=== PATIENT | male | born 1985 | race Caucasian/White ===

== ENCOUNTER 2018-08-31 21:02 | Emergency (ER) | payer BC, MEDICAID ==
[2018-08-31 21:10] VITALS: BP 123/80
[2018-08-31] MEDS ORDERED: SILVER NITRATE APPLICATOR 1 APPL TP ONE (21:58)
[2018-08-31] MEDS ORDERED: AMOXICILLIN/CLAVULANATE POT 875/125 MG TAB PO ONE (22:02)
--- NOTE | 2018-08-31 22:07 | EDPHY ---
H & P Stated Complaint: dog bite right ear 30 min ago Time Seen by Provider: 08/31/18 22:03 HPI/ROS: HPI: This is a 33-year-old male who presents with Chief Complaint: Dog bite to right ear Location: Right ear Quality: Dog bite Duration: Prior to arrival Signs and Symptoms: + bleeding, no radiation, no numbness, no weakness, no tingling, no incontinence, no decreased range of motion, no swelling, + pain, no fever Timing: Acute Severity: Moderate Context: Reports that he was at his parents house sitting in a [place] playing guitar and seeing when he moved the family dog who is a 50 lb setter mix, up-to- date on vaccinations including rabies, and the dog turned around and bit him in the right ear. Patient reports that it immediately started to bleed. Denies LOC/head injury/neck pain/dizziness/nausea/vomiting/amnesia. Reports tetanus is current. Modifying Factors: Direct pressure Comment: ROS: A comprehensive 10 system review of systems is otherwise negative aside from elements mentioned in the history of present illness. MEDICAL/SURGICAL/SOCIAL HISTORY: Medical history: hiv +: undetectable, chi, tonsils, hep c + 05/2017: undetectable now, mrsa: 2011: right groin Surgical history: left knee surgery Social history: Never smoked. CONSTITUTIONAL: Well-developed, well-nourished, slightly anxious adult white male, awake and alert, no obvious distress HEENT: normocephalic, PERRL, EOMI. no globe entrapment, no raccoon eyes. no Sutton signs.Tympanic membranes clear. External pinna shows 2 areas of injury; near the tragus is a small skin avulsion measuring 2 mm x 1 mm with active bleeding, there is a v-shaped laceration in the upper portion of the pinna near the cartilage not through and through measure approximately 2 mm x 2 mm-scant active bleeding. No tympanic membrane rupture. Nares patent; no septal hematoma. Oropharynx clear, no exudate and moist pink mucosa. No malocclusion. no dental trauma. Airway patent. No lymphadenopathy. NECK: supple, no midline tenderness, flexion 45 degrees, extension 45 degrees, right and left lateral flexion 45 degrees. No meningismus. Cardiovascular: Normal S1/S2, regular rate, regular rhythm, without murmur rub or gallop. PULMONARY/CHEST: Symmetrical and nontender. no crepitus. Clear to auscultation bilaterally. Good air movement. No accessory muscle usage. ABDOMEN: Soft, nondistended, nontender, no ecchymosis, no rebound, no guarding , no peritoneal signs, no masses or organomegaly. No CVAT. EXTREMITIES: 2/2 pulses, no deformities, no clubbing, no cyanosis or edema. NEUROLOGICAL: no focal neuro deficits. GCS 15. SKIN: Warm and dry, no erythema. no rash. Good capillary refill. Source: Patient Exam Limitations: No limitations - Personal History Current Tetanus/Diphtheria Vaccine: Yes - Medical/Surgical History Hx Asthma: No Hx Chronic Respiratory Disease: No Hx Diabetes: No Hx Cardiac Disease: No Hx Renal Disease: No Hx Cirrhosis: No Hx Alcoholism: No Hx HIV/AIDS: No Hx Splenectomy or Spleen Trauma: No Other PMH: hiv +: undectable,. chi, tonsils, left knee surg. hep c + 05/2017 : undetect now. mrsa: 2011: right groin - Social History Smoking Status: Never smoked Constitutional: Initial Vital Signs Temperature (C) 36.7 C 08/31/18 21:05 Heart Rate 73 08/31/18 21:05 Respiratory Rate 20 08/31/18 21:05 Blood Pressure 123/80 H 08/31/18 21:05 O2 Sat (%) 97 08/31/18 21:05 O2 Delivery Mode Room Air Allergies/Adverse Reactions: No Known Allergies Allergy (Unverified 08/31/18 21:05) Home Medications: Medication Instructions Recorded Amoxicillin/Clavulanate Pot 875 mg PO BID #14 tab 08/31/18 [Augmentin 875 MG TAB (*)] Genoya 08/31/18 Medical Decision Making ED Course/Re-evaluation: Vital signs reviewed and show elevated blood pressure upon arrival. [facility]'s Office contacted. Rabies prophylaxis not indicated Tetanus is up-to-date. Local anesthesia provided with 1% lidocaine without epinephrine; copiously irrigated; [place] and dressing placed with good hemostasis Augmentin given There is a small skin avulsion on inferior portion of the ear that cannot be sutured. Not through and through laceration that is irregular in the top portion of the pinna; could have 2 3 sutures placed. I feel it best this time to have this be performed under delayed closure due to it being a dog bite, needing antibiotics for the next 48-72 hours before laceration is closed. No signs of neurovascular compromise/tenting of skin/compartment syndrome/ extremities and joints examined above and below area of concern and are neurovascularly intact. This patient was seen under the supervision of my secondary supervising physician. I evaluated care for this patient with attending. Discussed this patient with Dr. Spencer. Differential Diagnosis: Differential diagnosis includes but is not limited to laceration, puncture wound , cartilage injury. - Data Points Medications Given: Discontinued Medications Amoxicillin/Clavulanate Potassium (Augmentin 875mg) 875 mg PO EDNOW ONE PRN Reason: Protocol Stop: 08/31/18 22:03 Last Admin: 08/31/18 22:21 Dose: 875 mg Departure - Departure Disposition: Home, Routine, Self-Care Clinical Impression: Dog bite of right ear Qualifiers: Encounter type: initial encounter Qualified Code(s): S01.351A - Open bite of right ear, initial encounter Condition: Good Instructions: Animal Bite (ED), Laceration Without Closure (ED) Additional Instructions: Keep the dressing dry and in place until seen for follow-up in the emergency room or Plastic surgery. Take Tylenol 650 mg every 4 hours and/or Ibuprofen 600 mg every 8 hours with food as needed for pain. Take antibiotic as directed. Do not skip a dose. Wound Care Follow-Up: Wound evaluation in [2-3] days to determine if laceration can be closed. There is a charge for this evaluation in the Emergency Department. Referrals: [facility]BO[facility] [Other] - As per Instructions Loree Anderson JR, MD [Medical Doctor] - As per Instructions Prescriptions: Amoxicillin/Clavulanate Pot [Augmentin 875 MG TAB (*)] 875 mg PO BID #14 tab
== END 2018-08-31 22:52 | disposition home or self-care (01) ==
PROC: 09Q0XZZ Repair Right External Ear, External Approach (ICD-10-PCS; principal; 2018-08-31)
DX: S01.351A Open bite of right ear, initial encounter (principal); W54.0XXA Bitten by dog, initial encounter; Y92.009 Unspecified place in unspecified non-institutional (private) residence as the place of occurrence of the external cause

== ENCOUNTER 2018-09-03 12:32 | Emergency (ER) | payer MEDICAID ==
--- NOTE | 2018-09-03 12:56 | EDPHY ---
HPI/HX/ROS/PE/MDM Narrative: CHIEF COMPLAINT: Dog bite right ear HPI: The patient is a 33 y/o male with HIV+ status arriving with his friend returning for reassessment of a dog bite wound to his right ear. He was evaluated here on 08/31/18, three days ago, after his parents' dog bit the cartilage of his right ear. The dog is up-to-date on vaccinations. The wound was not sutured and the patient was placed on Augmentin prophylactically. He has been taking this for the last 2 days. He's notes diarrhea onset last night since starting the Augmentin, but otherwise has no new complaints. REVIEW OF SYSTEMS: A comprehensive 10 system review of systems is otherwise negative aside from elements mentioned in the history of present illness. PMH: HIV+ with last CD4 count 700-800 range; tonsillectomy; left knee surgery SOCIAL HISTORY: Nonsmoker. Friend at bedside. Employed. PCP: John Gomez PHYSICAL EXAM: General:Patient is alert, in no acute distress. ENT:Eyes are normal to inspection. Irregular healing lacerations along right pinna, no signs of infection. ENT inspection otherwise normal. Neck: Normal inspection. Full range of motion. Respiratory:No respiratory distress. Cardiovascular: Normal cap refill. Skin: Normal color. No rash. Warm and dry. Extremities: Normal appearance. Full range of motion. Neuro: Oriented x3. Normal motor function. Normal sensory function. ED Course: Plan for wound care and re-bandaging. I see no sign of infection or acute bleeding. General Time Seen by Provider: 09/03/18 12:49 Initial Vital Signs: Initial Vital Signs Temperature (C) 36.7 C 09/03/18 12:35 Heart Rate 71 09/03/18 12:35 Respiratory Rate 18 09/03/18 12:35 Blood Pressure 131/71 H 09/03/18 12:35 O2 Sat (%) 96 09/03/18 12:35 O2 Delivery Mode Room Air Allergies/Adverse Reactions: No Known Allergies Allergy (Verified 09/03/18 12:33) Home Medications: Medication Instructions Recorded Amoxicillin/Clavulanate Pot 875 mg PO BID #14 tab 08/31/18 [Augmentin 875 MG TAB (*)] Genoya 08/31/18 Departure - Departure Disposition: Home, Routine, Self-Care Clinical Impression: Laceration of ear Condition: Good Instructions: Laceration (ED) Additional Instructions: 1. Continue taking Augmentin as prescribed. Okay to use Imodium as directed on the packaging as indicated for diarrhea. 2. Remove bandage in a few days. 3. Return for worsening of condition. Referrals: [facility],. [Clinic] - As per Instructions Sadiq Casas MD [Medical Doctor] - As per Instructions Report Scribed for: Maik Ziegler Report Scribed by: Tamela White Date of Report: 09/03/18 Time of Report: 13:04 Physician Review and Approval Statement: Portions of this note were transcribed by an ED scribe. I personally performed the history, physical exam, and medical decision making; and confirm the accuracy of the information in the transcribed note.
[2018-09-03 14:15] VITALS: BP 122/73
== END 2018-09-03 14:13 | disposition home or self-care (01) ==
DX: S01.311A Laceration without foreign body of right ear, initial encounter (principal); Z21 Asymptomatic human immunodeficiency virus [HIV] infection status; W54.0XXA Bitten by dog, initial encounter; Y92.9 Unspecified place or not applicable; Y99.9 Unspecified external cause status; Y93.9 Activity, unspecified